=== PATIENT | female | born 1945 | race Caucasian/White ===

== ENCOUNTER 2023-06-26 18:06 | Emergency (ER) | payer OTHER, BC ==
[2023-06-26 18:43] VITALS: BP 142/50; PULSE 77; RESP 18; TEMP 97.2; BMI 27.7
== END 2023-06-26 18:49 | disposition home or self-care (01) ==
LOC: FER 18:06
DX: S81.801A Unspecified open wound, right lower leg, initial encounter (principal); I73.9 Peripheral vascular disease, unspecified
CPT/HCPCS: 99283-25

== ENCOUNTER 2023-11-25 07:41 | Observation (INO) | payer OTHER, BC ==
[2023-11-25 07:56] VITALS: RESP 18; TEMP 98.2; BMI 31.6
[2023-11-25] MEDS: SODIUM CHLORIDE 500 ML IV STA (08:45)
[2023-11-25] MEDS ORDERED: FAMOTIDINE 20 MG/50 ML IVPB 20 MG/50 ML MG IVPB ONE (09:14)
[2023-11-25] MEDS ORDERED: ACETAMINOPHEN INJECTION 100 ML IVPB ONE (09:14)
[2023-11-25] MEDS: ACETAMINOPHEN 1000 MG/100 ML BAG IVPB ONE (09:18)
[2023-11-25] MEDS: FAMOTIDINE 20 MG/50 ML IVPB 20 MG in PREMIX 50 IVPB ONE (09:28)
[2023-11-25 09:29] LABS: HEMATOCRIT 35.4 % (32.4-45.2); HEMOGLOBIN 11.3 G/dL (10.7-15.3); MCH 30.2 pg (25.7-33.7); MCHC 31.8 g/dl (32.0-36.0); MEAN PLT VOLUME 8.7 fl (7.5-11.1); PLATELET COUNT 258.3 10^3/uL (134-434); RBC 3.73 10^6/uL (3.60-5.2); RDW 14.7 % (11.6-15.6); WHITE BLOOD COUNT 6.6 10^3/uL (4.0-10.8)
[2023-11-25 09:37] LABS: PLATELET ESTIMATE ADEQUATE
[2023-11-25 09:38] LABS: ALBUMIN 4.4 g/dl (3.4-5.0); BILIRUBIN,TOTAL 0.5 mg/dl (0.2-1); CALCIUM 9.9 mg/dl (8.5-10.1); CREATININE 1.1 mg/dl (0.6-1.3); POTASSIUM 4.7 mmol/L (3.5-5.1); TOT PROT 6.7 g/dl (6.4-8.2)
[2023-11-25 12:05] VITALS: BP 155/88; PULSE 90
[2023-11-25] MEDS: APIXABAN 5 MG TABLET PO ONE (13:02)
[2023-11-25 14:55] LABS: N-TERMINAL BNP 3283.4 pg/ml (5-450)
== END 2023-11-25 15:20 | disposition left against medical advice (07) ==
LOC: FER 07:41 → FM/S 10:34 → INTOOBSV 10:34
PROC: 3E033NZ Introduction of Analgesics, Hypnotics, Sedatives into Peripheral Vein, Percutaneous Approach (ICD-10-PCS; principal; 2023-11-25)
PROC: 3E033GC Introduction of Other Therapeutic Substance into Peripheral Vein, Percutaneous Approach (ICD-10-PCS; 2023-11-25)
PROC: 3E0337Z Introduction of Electrolytic and Water Balance Substance into Peripheral Vein, Percutaneous Approach (ICD-10-PCS; 2023-11-25)
DX: I48.91 Unspecified atrial fibrillation (principal); I10 Essential (primary) hypertension; E03.9 Hypothyroidism, unspecified; I89.0 Lymphedema, not elsewhere classified; E78.5 Hyperlipidemia, unspecified; E66.9 Obesity, unspecified; Z72.3 Lack of physical exercise; N95.9 Unspecified menopausal and perimenopausal disorder; R01.1 Cardiac murmur, unspecified; Z90.49 Acquired absence of other specified parts of digestive tract; Z90.79 Acquired absence of other genital organ(s); Z91.013 Allergy to seafood; Z88.5 Allergy status to narcotic agent; Z88.8 Allergy status to other drugs, medicaments and biological substances
CPT/HCPCS: 36415; 71045-TC-FY; 80053; 80061; 81003; 81015; 83036; 83690; 83880; 84439; 84443; 84484; 85027; 93005; 96361; 96365; 96375; 99285-25; G0378; J0131